=== PATIENT | female | born 1990 | race Caucasian/White ===

== ENCOUNTER 2024-05-20 11:04 | Emergency (ER) | payer MEDICAID ==
[~2024-05-20] VITALS: Ht 170.1 cm; Wt 68.0 kg
[~2024-05-20 11:04] MED LIST: AUGMENTIN 500500 M1 PO; ZOFRAN4 MG PO
== END 2024-05-20 14:06 | disposition home or self-care (01) ==
LOC: ED 11:04
DX: J06.9 Acute upper respiratory infection, unspecified (principal); B97.89 Other viral agents as the cause of diseases classified elsewhere; Z20.822 Contact with and (suspected) exposure to COVID-19